=== PATIENT | male | born 1960 | race Caucasian/White ===

== ENCOUNTER → 2022-10-26 | Day surgery (SDC) | payer OTHER ==
[~2022-10-26] MED LIST: Iopamidol-M 200 41% 10 ML VIAL FS ONE; Lidocaine 1% PF 5 ML VIAL ONE; Sodium Bicarbonate 2.5 MEQ/5 ML VIAL ONE
== END ==
LOC: CSHRAD 09:04 → EDSTATUS 10:00
PROVIDERS: ATTEND Neurological Surgery
PROC: B01BYZZ Fluoroscopy of Spinal Cord using Other Contrast (ICD-10-PCS; principal; 2022-10-26)
DX: M48.07 Spinal stenosis, lumbosacral region (principal); M47.16 Other spondylosis with myelopathy, lumbar region; F31.9 Bipolar disorder, unspecified; I10 Essential (primary) hypertension; G89.29 Other chronic pain; J44.9 Chronic obstructive pulmonary disease, unspecified; F20.9 Schizophrenia, unspecified; F17.210 Nicotine dependence, cigarettes, uncomplicated; Z79.899 Other long term (current) drug therapy
CPT/HCPCS: 62304; 72132; Q9966

== ENCOUNTER 2023-08-15 17:34 | Inpatient (IN) | payer OTHER ==
[2023-08-15 18:32] LABS: Bilirubin Neg (Negative); Blood, Urine 25 (Negative); Clarity Cloudy (Clear); Glucose, Urine (Dipstick) Normal (Negative); Ketone, Urine Negative (Negative); Leukocyte 500 (Negative); Nitrite Negative (Negative); Protein, Urine (Dipstick) 30 mg/dl (Neg-Trace); Specific Gravity, Urine 1.005 (1.005-1.030); Urobilinogen Normal mg/dL (Less than 2)
[2023-08-15 18:40] LABS: Amphetamine Not Detected (NotDetected); Barbiturates Screen Not Detected (NotDetected); Benzodiazepine Screen Not Detected (NotDetected); CAUTI Indications for Culture Alt mental st,lethar; Cocaine Metabolite Screen Not Detected (NotDetected); Methadone Not Detected (NotDetected); Methamphetamine Not Detected (NotDetected); Opiate Screen Not Detected (NotDetected); Oxycodone Screen Not Detected (NotDetected); Phencyclidine (PCP) Not Detected (NotDetected); RBC/HPF 0-3 HPF (0-3); Squamous Epithelial 0-3 HPF (0-3); THC/Cannabinoid Screen Not Detected (NotDetected); Tricyclic Screen Not Detected (NotDetected); WBC/HPF 21-50 HPF (0-3)
[2023-08-15 18:41] LABS: Bacteria/HPF 2+ HPF (None Seen)
[2023-08-15 18:42] LABS: Urine Culture Reflex Yes Yes
[2023-08-15 18:50] LABS: #Basophils 0.1 10x3/uL (0.0-0.2); #Eosinphils 0.3 10x3/uL (0.0-0.5); #Neutrophils 12.9 10x3/uL (1.5-8.4); %Basophils 0.4 % (0.0-2.0); %Eosinophils 1.7 % (0.0-6.0); %Lymphocytes 8.1 % (18.0-47.0); %Monocytes 6.6 % (0.0-10.0); %Neutrophils 82.7 % (40.0-75.0); Hematocrit 32.1 % (38.8-50.0); Hemoglobin 10.6 g/dL (13.5-17.5); Mean Corpuscular Hemoglobin 31.8 pg (27.0-33.0); Mean Corpuscular Volume 96.4 fl (81.2-95.1); Platelet Count 253 10x3/uL (150-450); RBC Distribution Width 13.1 % (11.5-14.5); Red Blood Cell (RBC) Count 3.33 10x6/uL (4.32-5.72); White Blood Cell (WBC) Count 15.5 10x3/uL (3.5-10.5)
[2023-08-15 19:28] LABS: ALT (SGPT) 13 U/L (8-55); AST (SGOT) 15 U/L (5-34); Albumin 3.9 g/dL (3.4-4.8); Alkaline Phosphatase 113 U/L (40-110); Anion Gap 11 mmol/L (10-20); BUN (Urea Nitrogen) 28 mg/dL (8.4-25.7); Bilirubin, Total 0.3 mg/dL (0.2-1.2); Calc. Creatinine Clearance 0 mL/min (70-130); Calcium 8.7 mg/dL (7.8-10.44); Carbon Dioxide 18 mmol/L (23-31); Chloride 108 mmol/L (98-107); Estimated GFR 59; Globulin 2.3 g/dL (2.4-3.5); Glucose 101 mg/dL (80-115); Protein, Total 6.2 g/dL (5.8-8.1); Sodium 133 mmol/L (136-145)
[2023-08-15 19:38] LABS: Acetaminophen Less than 10 mcg/mL (10.0-30.0); Alcohol Less than 10.0 mg/dL (Less than 10); Lipase 31 U/L (8-78); Magnesium 1.8 mg/dL (1.6-2.6); Salicylate Less than 8.0 mg/dL (15.0-30.0)
[2023-08-15] MEDS ORDERED: cefTRIAXone (ROCEPHIN) 1 GM VIAL ONE (20:56)
[2023-08-15] MEDS ORDERED: Ondansetron PF 4 MG/2 ML Vial IVP PRN (21:59)
[2023-08-15] MEDS ORDERED: Acetaminophen 325 MG TAB PO PRN (21:59)
[2023-08-15] MEDS ORDERED: Calcium Carbonate 500 MG ChewTAB PO PRN (21:59)
[2023-08-15] MEDS ORDERED: Senokot S 8.6-50 MG TAB PO PRN (21:59)
[2023-08-15] MEDS ORDERED: Ipratropium/Albuterol 3 ML NEB NEB PRN (22:04)
[2023-08-15] MEDS ORDERED: Lorazepam 2 MG/ML VIAL SLOW IVP PRN (22:07)
[2023-08-15] MEDS ORDERED: Lactated Ringer's 1,000 ML IV SCH (22:15)
[2023-08-15] MEDS ORDERED: Thiamine HCl 200 MG/2 ML VIAL SLOW IVP SCH (22:15)
[2023-08-15] MEDS ORDERED: Thiamine HCl 200 MG/2 ML VIAL ONE (22:42)
[2023-08-15] MEDS ORDERED: Lactulose 20 GM (30 mL) UDCUP PO SCH (23:45)
[2023-08-16 03:55] LABS: #Basophils 0.1 10x3/uL (0.0-0.2); #Eosinphils 0.4 10x3/uL (0.0-0.5); #Monocytes 0.9 10x3/uL (0.0-1.1); #Neutrophils 7.7 10x3/uL (1.5-8.4); %Basophils 0.7 % (0.0-2.0); %Eosinophils 3.4 % (0.0-6.0); %Monocytes 8.3 % (0.0-10.0); %Neutrophils 70.2 % (40.0-75.0); Hematocrit 30.6 % (38.8-50.0); Hemoglobin 10.4 g/dL (13.5-17.5); Mean Corpuscular Volume 94.2 fl (81.2-95.1); Platelet Count 224 10x3/uL (150-450); RBC Distribution Width 12.9 % (11.5-14.5); Red Blood Cell (RBC) Count 3.25 10x6/uL (4.32-5.72)
[2023-08-16 04:14] LABS: Anion Gap 9 mmol/L (10-20); BUN (Urea Nitrogen) 21 mg/dL (8.4-25.7); CK (CPK) 102 U/L (30-200); Calc. Creatinine Clearance 0 mL/min (70-130); Carbon Dioxide 21 mmol/L (23-31); Chloride 111 mmol/L (98-107); Estimated GFR 98; Glucose 94 mg/dL (80-115); Magnesium 1.9 mg/dL (1.6-2.6); Phosphorus 2.6 mg/dL (2.3-4.7); Sodium 137 mmol/L (136-145)
[2023-08-16] MEDS: Mometasone/Formoterol 60 PUFF AER INH SCH ×2 (06:44→19:25)
[2023-08-16] MEDS ORDERED: Thiamine 100 MG TAB ONE (08:51)
[2023-08-16] MEDS ORDERED: Folic Acid 1 MG TAB ONE (08:51)
[2023-08-16] MEDS ORDERED: Multivitamin W/ Minerals 1 TAB PO SCH (09:00)
[2023-08-16] MEDS ORDERED: Famotidine 20 MG TAB PO SCH (09:00)
[2023-08-16] MEDS ORDERED: clonazePAM 0.5 MG TAB ONE (09:05)
[2023-08-16] MEDS: Lithium Carbonate 300 MG ER.TAB PO SCH ×2 (09:17→18:22)
[2023-08-16] MEDS: Benztropine 1 MG TAB PO SCH (09:18)
[2023-08-16] MEDS: Folic Acid 1 MG TAB PO SCH (09:19)
[2023-08-16] MEDS: clonazePAM 0.5 MG TAB PO SCH ×2 (09:19→22:27)
[2023-08-16] MEDS: Multivit, Therapeutic 1 TAB PO SCH (09:20)
[2023-08-16] MEDS: Thiamine 100 MG TAB PO SCH (09:21)
[2023-08-16] MEDS: Polyethylene Glycol 3350 17 GM Packet PO SCH (09:22)
[2023-08-16] MEDS ORDERED: Magnesium 2 GM/50 ML(in water) 2 GM in Premix 1 BAG IVPB SCH (10:15)
[2023-08-16] MEDS ORDERED: Magnesium 2 GM/50 ML BAG (IN WATER) ONE (11:36)
[2023-08-16] MEDS ORDERED: FLU VACC QS2023-24(6MOS UP)/PF 60 MCG/0.5 ML SYRINGE IM ONE (16:45)
[2023-08-16] MEDS ORDERED: cefTRIAXone\\ROCEPHIN 2 GM in Sodium Chloride 0.9% 100 ML IVPB SCH (21:00)
[2023-08-16] MEDS ORDERED: OLANZAPINE 15 MG PO SCH (21:00)
[2023-08-16] MEDS: Enoxaparin 40 MG (0.4 mL) SYRINGE SC SCH (22:27)
[2023-08-16] MEDS: Tamsulosin HCl 0.4 MG CAP PO SCH (22:27)
[2023-08-17] MEDS: Benztropine 1 MG TAB PO SCH ×3 (03:11→22:47)
[2023-08-17] MEDS: OLANZapine 5 MG TAB PO SCH ×2 (03:11→22:47)
[2023-08-17 05:25] LABS: #Basophils 0.1 10x3/uL (0.0-0.2); #Eosinphils 0.3 10x3/uL (0.0-0.5); #Monocytes 0.7 10x3/uL (0.0-1.1); #Neutrophils 7.1 10x3/uL (1.5-8.4); %Basophils 0.6 % (0.0-2.0); %Eosinophils 3.4 % (0.0-6.0); %Lymphocytes 17.2 % (18.0-47.0); %Monocytes 7.1 % (0.0-10.0); %Neutrophils 71.4 % (40.0-75.0); Hematocrit 32.9 % (38.8-50.0); Hemoglobin 10.8 g/dL (13.5-17.5); Mean Corpuscular HGB CONC 32.8 g/dL (32.0-36.0); Mean Corpuscular Hemoglobin 30.2 pg (27.0-33.0); Mean Corpuscular Volume 91.9 fl (81.2-95.1); Platelet Count 261 10x3/uL (150-450); RBC Distribution Width 12.8 % (11.5-14.5); Red Blood Cell (RBC) Count 3.58 10x6/uL (4.32-5.72); White Blood Cell (WBC) Count 9.9 10x3/uL (3.5-10.5)
[2023-08-17 05:42] LABS: Anion Gap 12 mmol/L (10-20); BUN (Urea Nitrogen) 17 mg/dL (8.4-25.7); Calc. Creatinine Clearance 103 mL/min (70-130); Calcium 9.2 mg/dL (7.8-10.44); Carbon Dioxide 21 mmol/L (23-31); Chloride 110 mmol/L (98-107); Estimated GFR 102; Glucose 105 mg/dL (80-115); Potassium 3.8 mmol/L (3.5-5.1); Sodium 139 mmol/L (136-145)
[2023-08-17] MEDS: Mometasone/Formoterol 60 PUFF AER INH SCH ×2 (07:28→20:50)
[2023-08-17] MEDS: Polyethylene Glycol 3350 17 GM Packet PO SCH (08:59)
[2023-08-17] MEDS: Folic Acid 1 MG TAB PO SCH (08:59)
[2023-08-17] MEDS: Thiamine 100 MG TAB PO SCH (08:59)
[2023-08-17] MEDS: clonazePAM 0.5 MG TAB PO SCH ×2 (08:59→22:31)
[2023-08-17] MEDS: Multivit, Therapeutic 1 TAB PO SCH (08:59)
[2023-08-17] MEDS: Lithium Carbonate 300 MG ER.TAB PO SCH ×2 (09:14→18:59)
[2023-08-17 10:02] LABS: SARS-CoV-2 NAA Rapid Test Not Detected (NotDetected)
[2023-08-17] MEDS ORDERED: LevoFLOXacin 750 mg/D5W 750 MG in Premix 1 BAG IVPB SCH (21:00)
[2023-08-17] MEDS: Tamsulosin HCl 0.4 MG CAP PO SCH (22:31)
[2023-08-17] MEDS: Enoxaparin 40 MG (0.4 mL) SYRINGE SC SCH (22:33)
[2023-08-18] MEDS: Mometasone/Formoterol 60 PUFF AER INH SCH (07:30)
[2023-08-18 08:46] VITALS: TEMP 97.9
[2023-08-18] MEDS: Multivit, Therapeutic 1 TAB PO SCH (10:41)
[2023-08-18] MEDS: Thiamine 100 MG TAB PO SCH (10:42)
[2023-08-18] MEDS: Benztropine 1 MG TAB PO SCH (10:42)
[2023-08-18] MEDS: clonazePAM 0.5 MG TAB PO SCH (10:42)
[2023-08-18] MEDS: Folic Acid 1 MG TAB PO SCH (10:42)
[2023-08-18] MEDS: Polyethylene Glycol 3350 17 GM Packet PO SCH (10:42)
[2023-08-18 13:03] VITALS: BP 132/74
[2023-08-18] MEDS: Lithium Carbonate 300 MG ER.TAB PO SCH (15:20)
== END 2023-08-18 15:25 | disposition home or self-care (01) | DRG 682 ==
LOC: CSHERS 17:34 → CSHERHOLD 20:33 → OBSVTOIN 21:59 → CSHTELE 08-16 14:29
PROVIDERS: ADMIT Student in an Organized Health Care Education/Training Program; ATTEND Internal Medicine
DX: N17.9 Acute kidney failure, unspecified (principal); G93.41 Metabolic encephalopathy; J69.0 Pneumonitis due to inhalation of food and vomit; N39.0 Urinary tract infection, site not specified; J44.9 Chronic obstructive pulmonary disease, unspecified; G89.4 Chronic pain syndrome; I10 Essential (primary) hypertension; F31.9 Bipolar disorder, unspecified; Z88.0 Allergy status to penicillin; Z88.2 Allergy status to sulfonamides; Z79.899 Other long term (current) drug therapy; D64.9 Anemia, unspecified; Z11.52 Encounter for screening for COVID-19; M47.816 Spondylosis without myelopathy or radiculopathy, lumbar region; M48.02 Spinal stenosis, cervical region; M48.061 Spinal stenosis, lumbar region without neurogenic claudication; M50.30 Other cervical disc degeneration, unspecified cervical region; M51.26 Other intervertebral disc displacement, lumbar region; M47.814 Spondylosis without myelopathy or radiculopathy, thoracic region; Z98.1 Arthrodesis status
CPT/HCPCS: 0241U; 36415; 70450; 71045; 72100; 72141; 72146; 72148; 74176; 80048; 80053; 80178; 80306; 80307; 81001; 82140; 82550; 83605; 83690; 83735; 84100; 84443; 85025; 87040; 87077; 87086; 87186; 93005; 96374; J0696; J1650; J1956; J3411; J3475; J3490; J7120

== ENCOUNTER 2023-12-08 08:43 | Day surgery (SDC) | payer OTHER ==
[2023-12-08] MEDS ORDERED: Sodium Bicarbonate 2.5 MEQ/5 ML SDV ONE (09:12)
[2023-12-08 09:42] VITALS: BP 119/73; TEMP 97.1
== END 2023-12-08 12:20 | disposition home or self-care (01) ==
LOC: CSHRAD 08:43
PROVIDERS: ATTEND Neurological Surgery
PROC: B02BYZZ Computerized Tomography (CT Scan) of Spinal Cord using Other Contrast (ICD-10-PCS; principal; 2023-12-08)
DX: M47.16 Other spondylosis with myelopathy, lumbar region (principal); M47.812 Spondylosis without myelopathy or radiculopathy, cervical region; M48.02 Spinal stenosis, cervical region
CPT/HCPCS: 62284; 72126; 72132; 77003